=== PATIENT | female | born 2000 | race Caucasian/White ===

== ENCOUNTER 2021-12-14 11:38 | Emergency (ER) | payer MEDICAID | END 2021-12-14 13:30 | disposition home or self-care (01) | LOC: CSHERS 11:38 | DX: O99.612 Diseases of the digestive system complicating pregnancy, second trimester (principal); K80.20 Calculus of gallbladder without cholecystitis without obstruction; Z3A.18 18 weeks gestation of pregnancy | CPT/HCPCS: 76815 ==